=== PATIENT | male | born 1965 | race Caucasian/White ===

== ENCOUNTER 2020-02-08 10:12 | Outpatient (CLI) | payer OTHER ==
[2020-02-08 14:52] LABS: BASOPHILS % (AUTO) 0.4 %; EOSINOPHILS % (AUTO) 0.6 %; HGB - HEMOGLOBIN 17.1 g/dL (14.0-18.0); LYMPHOCYTES % (AUTO) 69.9 %; MEAN CORPUSCULAR HEMOGLOBIN 31.1 pg (27.0-31.0); MEAN CORPUSCULAR HGB CONC 34.8 g/dL (32.0-36.0); MEAN CORPUSCULAR VOLUME 89.6 fL (80.0-94.0); MEAN PLATELET VOLUME 10.5 fL (7.4-11.4); MONOCYTES % (AUTO) 6.2 %; NEUTROPHILS % (AUTO) 22.6 %; PLT - PLATELET COUNT 189 10^3/uL (130-450); RED BLOOD COUNT 5.49 10^6/uL (4.70-6.10); RED CELL DISTRIBUTION WIDTH 12.3 % (12.0-15.0); WHITE BLOOD COUNT 15.9 x10^3/uL (4.8-10.8)
[2020-02-08 15:16] LABS: ALBUMIN 4.5 g/dL (3.2-5.5); ALBUMIN/GLOBULIN RATIO 1.7 (1.0-2.2); ALKALINE PHOSPHATASE 50 IU/L (42-121); ALT ALANINE AMINOTRANSFERASE 40 IU/L (10-60); AST ASPARTATE AMINOTRANSFERASE 20 IU/L (10-42); BILIRUBIN,TOTAL 0.5 mg/dL (0.2-1.0); BUN - BLOOD UREA NITROGEN 19 mg/dL (6-20); CALCIUM 8.4 mg/dL (8.5-10.3); CARBON DIOXIDE - CO2 26 mmol/L (21-32); CHLORIDE 109 mmol/L (101-111); CHOL/HDL RATIO 5.8 (<5.0); CHOLESTEROL 232 mg/dL; CREATININE 0.7 mg/dL (0.6-1.2); GLUCOSE 95 mg/dL (70-100); HDL CHOLESTEROL 40 mg/dL; LDL CHOLESTEROL,CALCULATED 162 mg/dL; LDL/HDL RATIO 4.1 (<3.6); SODIUM 138 mmol/L (135-145); TOTAL PROTEIN 7.2 g/dL (6.7-8.2); VLDL CHOLESTEROL 30 mg/dL
[2020-02-08 15:32] LABS: ABNORMAL LYMPHS % (MANUAL) 0 %
[2020-02-08 16:33] LABS: BAND NEUTROPHILS % (MANUAL) 3 %; EOSINOPHILS # (MANUAL) 0.2 10^3/uL (0-0.7); LYMPHOCYTES # (MANUAL) 11.3 10^3/uL (1.5-3.5); LYMPHOCYTES % (MANUAL) 62 %; MONOCYTES # (MANUAL) 0.5 10^3/uL (0.0-1.0)
[2020-02-08 16:34] LABS: PLATELET ESTIMATE, MANUAL NORMAL (130-450,000) (NORMAL); PLATELET MORPHOLOGY NORMAL APPEARANCE (NORMAL); RBC MORPHOLOGY (MULTIPLE) NORMAL APPEARANCE (NORMAL)
[2020-02-08 16:35] LABS: DIFFERENTIAL COMMENT MANUAL DIFFERENTIAL
== END 2020-02-08 10:13 | disposition home or self-care (01) ==
LOC: LAB.S 10:12
PROVIDERS: ATTEND Registered Nurse
DX: Z87.19 Personal history of other diseases of the digestive system (principal); R10.31 Right lower quadrant pain; Z13.29 Encounter for screening for other suspected endocrine disorder
CPT/HCPCS: 36415; 80053; 80061; 83721; 84153; 84443; 85025

== ENCOUNTER 2022-12-30 16:43 | Outpatient (CLI) | payer OTHER ==
--- NOTE | 2022-12-30 18:34 | XRAY Report ---
PROCEDURE: Ribs w/PA Chest LT INDICATIONS: CHEST, LEFT SIDED RIB PAIN TECHNIQUE: 2 views of the left ribs were acquired, along with a single view chest. COMPARISON: Rib Radiographs 01/28/2020. FINDINGS: Surgical changes and devices: Surgical clips are seen in the upper abdomen. Bones and chest wall: Suspected nondisplaced fracture at the anterior aspect of the 7th rib adjacent to the skin marker. Lungs and pleura: No pleural effusions or pneumothorax. Lungs appear clear. Mediastinum: Mediastinal contours appear normal. Heart size is normal. IMPRESSION: Subtle nondisplaced fracture of the anterior left 7th rib. No pleural effusion or pneumothorax. Reviewed by: Nico Sharma MD on 12/30/2022 6:32 PM PDT Approved by: Nico Sharma MD on 12/30/2022 6:32 PM PDT Station ID: [id number]
== END 2022-12-30 16:44 | disposition home or self-care (01) ==
LOC: DI.S 16:43
DX: S22.32XA Fracture of one rib, left side, initial encounter for closed fracture (principal)

== ENCOUNTER 2024-01-07 07:00 | Outpatient (CLI) | payer OTHER ==
--- NOTE | 2024-01-07 15:05 | XRAY Report ---
PROCEDURE: Wrist 3+V RT INDICATIONS: SPRAIN OF RIGHT WRIST TECHNIQUE: 3 views of the wrist were acquired. COMPARISON: None. FINDINGS: Bones: No acute displaced fracture. No dislocation. Possible small exostosis from the lateral distal radial metaphysis. Soft tissues: No suspicious calcifications. IMPRESSION: No acute radiographic abnormality. If there is high concern for occult injury, consider repeat radiog jazmin or cross-sectional imaging. Possible small exostosis from the lateral distal radial metaphysis. Reviewed by: Marcelino Shaw MD on 01/07/2024 3:04 PM PDT Approved by: Marcelino Shaw MD on 01/07/2024 3:04 PM PDT Station ID: [id number]
== END 2024-01-07 23:59 | disposition home or self-care (01) ==
LOC: DI.S 07:00
PROVIDERS: ATTEND Physician Assistant
DX: S63.591A Other specified sprain of right wrist, initial encounter (principal)